=== PATIENT | male | born 1975 | race Caucasian/White ===

== ENCOUNTER 2024-06-22 10:20 | Emergency (ER) | payer OTHER, SELFPAY ==
[2024-06-22] VITALS (10 sets, daily range): BP systolic 143–207; BP diastolic 90–126; PULSE 72–87; RESP 11–20; TEMP 36.6; O2SAT 94–97; BMI 35.2
--- NOTE | 2024-06-22 10:29 | EKG_ITS ---
[address] [address] Test Date: 2024-06-22 Pat Name: Fernando May Department: [facility] Room: Gender: Male Laboratory Immunologist: ASHLEIGH : 1975 Requested By: Order Number: [id number] Reading MD: Lukasz Rush MD Measurements Intervals [place] Rate: 74 P: 28 AK: 172 QRS: 18 QRSD: 92 T: 27 QT: 356 QTc: 395 Interpretive Statements Normal sinus rhythm Electronically Signed On 06-23-2024 13:40:18 PST by Lukasz Rush MD
--- NOTE | 2024-06-22 10:53 | ED.ABDPAIN ---
HPI - Abdominal Pain General Chief Complaint: Abdominal Pain Stated Complaint: r lower abd pain, sent by [facility] Time Seen by Provider: 06/22/24 10:46 Source: patient, RN notes reviewed and old records reviewed Mode of arrival: Ambulatory Limitations: no limitations History of Present Illness HPI narrative: 48-year-old male with history of chronic low back pain and migraines presents with complaint of right lower quadrant pain that started about noon yesterday. Patient states it was a fairly abrupt onset yesterday in the right lower quadrant. Has not changed location. He denies any new back or flank pain. Denies any fevers but states he had some chills overnight and has felt warm today. Has had some nausea when the pain is quite intense but no vomiting. States he has had normal bowel movements. No black or bloody stools. Has not appreciate any dysuria, urgency or frequency or hematuria. Patient states pain is little bit better when he is still with movement pain is increased and he has to press down on that area to help relieve the discomfort. Patient states he takes acetaminophen quite frequently for migraines and low back pain. No other daily prescription medications. He has had some prior orthopedic surgeries but no prior intra-abdominal surgeries. States he vapes tobacco, no regular alcohol or recreational drugs. Related Data Home Medications Medication Instructions Recorded Confirmed [calcium,mag,zinc] ##0 08/31/17 01/21/19 cyclobenzaprine 10 mg tablet ##0 08/31/17 01/21/19 multivitamin (Multiple Vitamins 1 tab PO QDAY ##0 08/31/17 01/21/19 tablet) Lamictal PO 01/21/19 01/21/19 Previous Rx's Medication Instructions Recorded tramadol 50 mg tablet 50 mg PO Q6H PRN pain #10 tabs 06/22/24 Allergies Allergy/AdvReac Type Severity Reaction Status Date / Time influenza virus vaccine, Allergy Mild GET THE FLU Verified 01/21/19 14:08 specific [INFLUENZA VIRUS VACC,SPECIFIC] Review of Systems Review of Systems ROS Unobtainable: All systems reviewed & are unremarkable except as noted in HPI and below Patient History Social History Smoking Status: Current every day smoker Smoking Status: Current every day smoker tobacco type: vaping Substance Use Type: does not use Exam Narrative Exam Narrative: GENERAL: Alert and oriented x three, male in moderate distress. HEENT: Head normocephalic, atraumatic, EOMI, pupils reactive, face symmetric, moist mucous membranes NECK: Supple, full range of motion CARDIOVASCULAR: Regular rate and rhythm without murmurs, rubs or gallops. RESPIRATORY: Breath sounds equal bilaterally, no wheezes rales or rhonchi. ABDOMEN: Soft, positive for right lower quadrant tenderness. Patient also describes referred pain in the right lower quadrant when I palpate in the right upper quadrant. Normoactive bowel sounds all 4 quadrants. No guarding, positive for rebound, rigidity, no mass : No CVA tenderness EXTREMITIES: Normal range of motion, no clubbing or edema. Neurovascularly intact NEUROLOGICAL: Cranial nerves II through XII grossly intact. Moving all extremities SKIN: Warm, dry, no petechiae, no rashes or lesions. Initial Vital Signs Initial Vital Signs: Vital Signs Pulse Rate 82 06/22/24 10:26 Pulse Oximetry 96 06/22/24 10:26 Course Orders Ordered: ED Orders 06/22/24 10:29 EKG-12 Lead Stat 06/22/24 10:32 Complete Blood Count AUTO DIFF Stat Comprehensive Metabolic Panel Stat Lipase Stat 06/22/24 10:52 CT abdomen pelvis w con Stat 06/22/24 12:24 Urine Microscopic Stat Discontinued Medications Ketorolac Tromethamine (Ketorolac 30 Mg/Ml Vial) 15 mg IV NOW ONE Stop: 06/22/24 10:54 Last Admin: 06/22/24 11:44 Dose: 15 mg Documented By: MAYLIN Ondansetron HCl (Ondansetron 4 Mg/2 Ml Inj) 4 mg IV NOW PRN PRN Reason: Nausea And Vomiting Ondansetron HCl (Ondansetron 4 Mg Odt) 4 mg PO NOW PRN PRN Reason: Nausea And Vomiting Ondansetron HCl (Ondansetron 4 Mg/2 Ml Inj) 4 mg IV NOW ONE Stop: 06/22/24 10:54 Last Admin: 06/22/24 11:44 Dose: 4 mg Documented By: RB Vital Signs Vital signs: Vital Signs - 8 hr 06/22/24 10:26 06/22/24 10:27 06/22/24 10:27 Temperature Pulse Rate 82 86 Respiratory Rate Blood Pressure 207/126 H Pulse Oximetry 96 96 Oxygen Delivery Method 06/22/24 10:28 06/22/24 10:30 06/22/24 10:30 Temperature 98 F Pulse Rate 87 83 Respiratory Rate 20 14 Blood Pressure 207/126 H 172/90 H Pulse Oximetry 96 94 Oxygen Delivery Method Room Air 06/22/24 11:00 06/22/24 11:13 06/22/24 11:13 Temperature Pulse Rate 84 76 Respiratory Rate 19 14 Blood Pressure 143/95 H Pulse Oximetry 95 96 Oxygen Delivery Method 06/22/24 11:30 06/22/24 11:30 06/22/24 12:00 Temperature Pulse Rate 78 72 Respiratory Rate 17 13 Blood Pressure 152/96 H Pulse Oximetry 96 96 Oxygen Delivery Method 06/22/24 12:00 06/22/24 12:28 06/22/24 12:28 Temperature Pulse Rate 77 Respiratory Rate 11 L Blood Pressure 150/105 H 164/106 H Pulse Oximetry 97 Oxygen Delivery Method 06/22/24 12:30 06/22/24 12:30 Temperature Pulse Rate 72 Respiratory Rate Blood Pressure 160/103 H Pulse Oximetry 96 Oxygen Delivery Method MDM - Abdominal Pain Lab Data 06/22/24 10:32 06/22/24 10:32 Labs: Lab Results 06/22/24 06/22/24 Range/Units 10:32 12:24 WBC 6.3 (4.5-11.0) X10^3/uL RBC 5.37 (4.5-5.9) X10^6/uL Hgb 16.4 (13.5-17.5) g/dL Hct 47.2 (41-53) % MCV 88.0 (80-100) fL MCH 30.6 (26-34) PG MCHC 34.7 (30-36) % RDW 12.8 (11.6-14.8) % Plt Count 248 (150-400) X10^3/uL Neut % (Auto) 63.3 (50-75) % Lymph % (Auto) 27.8 (25-40) % [place] % (Auto) 6.9 (3-14) % Eos % (Auto) 1.7 L (2-4) % Baso % (Auto) 0.3 (0-2) % Neut # (Auto) 4000 (6712-9689) /uL Lymph # (Auto) 1800 (4122-5459) /uL [place] # (Auto) 400 (0-900) /uL Eos # (Auto) 100 (0-450) /uL Baso # (Auto) 0 (0-100) /uL Sodium 139 (137-145) mmol/L Potassium 4.3 (3.4-5.1) mmol/L Chloride 108 H (98-107) mmol/L Carbon Dioxide 23 (22-32) mmol/L BUN 16 (9-20) mg/dL Creatinine 0.90 (0.66-1.25) mg/dL Estimated GFR > 60 (>60) mL/min BUN/Creatinine Ratio 17.8 (6-22) Glucose 99 (70-100) mg/dL Calcium 9.7 (8.4-10.2) mg/dL Total Bilirubin 0.6 (0.2-1.3) mg/dL AST 21 (17-59) IU/L ALT 28 (<50) IU/L Alkaline Phosphatase 82 (38-126) U/L Total Protein 7.4 (6.3-8.2) g/dL Albumin 4.7 (3.5-5.0) g/dL Globulin 2.7 (1.7-4.1) g/dL Albumin/Globulin Ratio 1.7 (1.0-2.8) Lipase 177 (23-300) U/L Urine RBC None seen (0-5/HPF) Urine WBC None seen (0-5/HPF) Ur Squamous Epith Cells None seen (0-5/HPF) Urine Bacteria None seen (None) Ur Culture Indicated? Cult not indicated Vol Urine Centrifuged 10ml (spun) Point of care testing: Urine Dip Bedside Urine Glucose Negative Bedside Urine Bilirubin - Negative Bedside Urine Ketone - Negative Urine Specific Miracle 1.030 Bedside Urine Occult Blood - Negative Bedside Urine pH 6.0 Bedside Urine Protein - Negative Bedside Urine Urobilinogen - Negative Bedside Urine Nitrite - Negative Bedside Urine Leukocytes - Negative Esterase Imaging Data CT scan - abdomen/pelvis: Radiologist's Impression: Fernando May??48??M??1975 ? Allergy/Adv: influenza virus vaccine, specific (More??) Close Abdomen/Pelvis CT (Signed) Katie Jo - 06/22/24 [facility]ly [facility]?[address] [address] [address] Scan Report Signed Patient: Fernando May MR#: [id number] : 1975 Acct:[id number] Age/Sex: 48 / M Date of Service: 06/22/24 Loc: ED Accession Number: [id number] Procedure: CT abdomen pelvis w con Ordering Provider: Samra Bella D.O. PROCEDURE: CT ABDOMEN PELVIS W CON INDICATIONS: RLQ pain, appy vs stone TECHNIQUE: After the administration of intravenous contrast, axial sections acquired from the lung bases to the pubic symphysis. Coronal and sagittal reformats were performed. For radiation dose reduction, the following was used: automated exposure control, adjustment of mA and/or kV according to patient size. COMPARISON: None. FINDINGS: Image quality: Diagnostic. Lower Chest: No significant findings. ABDOMEN: Liver: No solid mass. Gallbladder: No radiopaque gallstones or wall thickening. Biliary ducts: No biliary dilation. Pancreas: No ductal dilation. Spleen: Size is within normal limits. Adrenal Glands: No adrenal nodules. Kidneys and Ureters: No hydronephrosis. Numerous small lesions are seen arising from the left renal cortex which are incompletely characterized. The most suspicious measures 1.8 x 1.8 x 1.7 cm in the upper pole and has a solid appearance. Stomach and Bowel: Normal colonic caliber, without significant wall thickening. The appendix is normal. Peritoneum: No abnormal intraperitoneal fluid. No free air. Ventral Wall: No significant ventral hernia. Abdominal Nodes: No retroperitoneal or mesenteric adenopathy by size criteria. Vessels: Aorta and inferior vena cava are normal in size. PELVIS: Pelvic Organs: Unremarkable. Bladder: No bladder wall thickening, accounting for underdistention. Pelvic Nodes: No enlarged lymph nodes. Miscellaneous: No inguinal hernias are seen. Bones: No aggressive osseous abnormality. IMPRESSION: 1. No acute abdominal process. Specifically, no appendicitis, diverticulitis, urolithiasis, or obstruction. 2. Suspicious left renal lesions. Recommend dedicated renal MRI for further evaluation. Dictated by: Katie Jo M.D. on 06/22/2024 at 10:28 Approved by: Katie Jo M.D. on 06/22/2024 at 10:40 ECG Data Attestation: I personally reviewed and interpreted this ECG as follows: Interpretation: Sinus rhythm rate of 74 OR 172 QRS of 90 QTC of 395, no acute ST changes appreciated. MDM Narrative Medical decision making narrative: 48-year-old male with reproducible right lower quadrant tenderness on exam notes onset about noon yesterday. No fevers, has had some nausea pain has been fairly constant gradually increasing but does wax and wane in intensity. Onset was quite sudden which makes it somewhat suspicious for kidney stone but patient does have reproducible pain which seems more consistent with a appendicitis. Has not had any black or bloody stools. No urinary changes that he appreciates. Labs show white count of 6.3 hemoglobin is 16.4 platelets of 248. Chloride 108 electrolytes are otherwise appropriate BUN 16 creatinine 0.9, glucose is 99 calcium is 9.7 LFTs are negative lipase is 177. EKG shows sinus rhythm Point of care urine is negative, urine microscopy was negative. CT abdomen pelvis shows no clear acute process appendix read as normal, no bladder wall thickening accounting for underdistention, no kidney stones appreciated no hydronephrosis, numerous small lesions seen arising from left renal cortex incompletely characterized most suspicious measures 1.8 x 1 point by 1.5 cm for pull and has a solid appearance recommend dedicated renal MRI for further evaluation. Patient received Toradol and Zofran, patient states improvement in pain still nauseated defers anything additional. Recommend patient return for repeat evaluation if symptoms are persisting or has any other new or concerning changes. On repeat exam patient is more tender over the right ASIS region and not so much in the in the intra-abdominal region. He is nontender over the inguinal canal. No rash or skin changes appreciated it was reproducible but patient is uncomfortable. He finds movement also increases his discomfort as well. Discharge Plan Departure Patient Disposition: Home Clinical Impression: Abdominal pain, Lesion of left [place] kidney Instructions: DI for Abdominal Pain-Adult Activity Restrictions/Additional Instructions: Please follow up for recheck if you are not having any improvement of your symptoms. Your labs, urine did not show any changes today, your CT imaging did not show any changes on the right, you were noted to have some small lesions in the left kidney the largest being 1.8 x 1.8 x 1.7 cm in his recommended to have a dedicated renal MRI for follow-up. Please call to set up follow up with primary care options are included with your paperwork. You can take acetaminophen up to a 1000 mg every 6 hours and/or ibuprofen up to 600 mg every 6 hours as needed for pain. If necessary you can take tramadol 1-2 tablets every 6 hours as needed for pain. Prescription sent to [facility] in [place]. Please return for fevers, worsening abdominal back or flank pain, any persistent vomiting, black or bloody stools, lightheadedness or passing out, new rash or skin changes or other new or concerning changes. Prescriptions: New tramadol 50 mg tablet 50 mg PO Q6H PRN (Reason: pain) Qty: 10 0RF No Action Lamictal PO cyclobenzaprine 10 mg tablet Qty: 0 multivitamin [Multiple Vitamins] 1 EACH tablet 1 tab PO QDAY Qty: 0 [calcium,mag,zinc] Qty: 0 Referrals: Miscellaneous,Doctor, MD [Primary Care Provider] - Stand Alone Forms: Patient Portal/API/Survey
[2024-06-22 11:14] LABS: Alanine Aminotransferase 28 IU/L (<50); Albumin 4.7 g/dL (3.5-5.0); Albumin Globulin Ratio 1.7 (1.0-2.8); Alkaline Phosphatase 82 U/L (38-126); Aspartate Aminotransferase 21 IU/L (17-59); BUN Creatinine Ratio 17.8 (6-22); Bilirubin Total 0.6 mg/dL (0.2-1.3); Blood Urea Nitrogen 16 mg/dL (9-20); Calcium 9.7 mg/dL (8.4-10.2); Carbon Dioxide 23 mmol/L (22-32); Chloride 108 mmol/L (98-107); Estimated Glomerular Filt Rate > 60 mL/min (>60); Globulin 2.7 g/dL (1.7-4.1); Glucose 99 mg/dL (70-100); HEMOLYSIS 16 (0-50); Lipase 177 U/L (23-300); Potassium 4.3 mmol/L (3.4-5.1); Sodium 139 mmol/L (137-145); Total Protein 7.4 g/dL (6.3-8.2)
[2024-06-22 11:23] LABS: Add Manual Diff / Slide Review NO; Basophils Absolute Auto 0 /uL (0-100); Basophils Percent Auto 0.3 % (0-2); Eosinophils Absolute Auto 100 /uL (0-450); Eosinophils Percent Auto 1.7 % (2-4); Hematocrit 47.2 % (41-53); Hemoglobin 16.4 g/dL (13.5-17.5); Lymphocytes Absolute Auto 1800 /uL (1100-4500); Lymphocytes Percent Auto 27.8 % (25-40); Mean Corpuscular HGB Conc 34.7 % (30-36); Mean Corpuscular Hemoglobin 30.6 PG (26-34); Monocytes Absolute Auto 400 /uL (0-900); Monocytes Percent Auto 6.9 % (3-14); Neutrophils Absolute Auto 4000 /uL (1500-7000); Neutrophils Percent Auto 63.3 % (50-75); Platelet Count 248 X10^3/uL (150-400); Red Blood Cell Count 5.37 X10^6/uL (4.5-5.9); Red Cell Distribution Width 12.8 % (11.6-14.8); White Blood Cell Count 6.3 X10^3/uL (4.5-11.0)
[2024-06-22] MEDS: ONDANSETRON 4 MG/2 ML INJ IV (11:44)
[2024-06-22] MEDS: KETOROLAC 30 MG/ML VIAL 15 MG IV (11:44)
[2024-06-22 12:42] LABS: Bacteria Urine None Seen; Culture Indicated Urine Cult Not Indicated; RBC Urine None Seen (0-5/HPF); Squamous Epithelial Cell Urine None Seen (0-5/HPF); Urine Volume 10mL (spun); WBC Urine None Seen (0-5/HPF)
== END 2024-06-22 13:02 | disposition home or self-care (01) ==
PROVIDERS: Emergency Provider Emergency Medicine
DX: R10.31 Right lower quadrant pain (principal); N28.9 Disorder of kidney and ureter, unspecified; R11.0 Nausea
CPT/HCPCS: 36415; 74177; 80053; 81003; 81015; 83690; 85025; 93005; 93010; 96374; 96375; 99284; J1885; J2405